=== PATIENT | female | born 1945 | race Caucasian/White ===

== ENCOUNTER 2016-11-08 08:25 | Emergency (ER) | payer OTHER ==
[~2016-11-08] VITALS: Ht 160 cm; Wt 59.0 kg
[2016-11-08 08:31] VITALS: BP 144/79
== END 2016-11-08 10:10 | disposition home or self-care (01) ==
LOC: ER 08:30
DX: J32.9 Chronic sinusitis, unspecified (principal); E03.9 Hypothyroidism, unspecified; K21.9 Gastro-esophageal reflux disease without esophagitis; D09.9 Carcinoma in situ, unspecified
CPT/HCPCS: 71020-TC; A4606; Z7610

== ENCOUNTER 2021-06-30 17:48 | Inpatient (IN) | payer MEDICARE, OTHER ==
[~2021-06-30] VITALS: Ht 160 cm; Wt 41.3 kg
--- NOTE | 2021-06-30 17:53 | NUR ---
SON: CHRISTAL HOUSTON [phone]
--- NOTE | 2021-06-30 17:56 | NUR ---
BIB [facility] 87 FROM HOME, PROGRESSIVE WEAKNESS X 1 WEEK, LOW O2SAT UPON EMS ARRIVAL. PT A&OX3. ATTACHED TO MONITOR. WARM BLANKET PROVIDED FOR COMFORT. AWAITING MD THOMPSON.
[2021-06-30] MEDS ORDERED: AMLO-212 PO (18:00)
[2021-06-30] MEDS ORDERED: LEVO112T7 PO (18:00)
[2021-06-30] MEDS ORDERED: OXYC13.5 PO (18:00)
[2021-06-30] MEDS ORDERED: OMEP20CA15 PO (18:00)
[2021-06-30] MEDS ORDERED: HYDR4TAB57 PO (18:00)
--- NOTE | 2021-06-30 18:50 | NUR ---
COVID SWAB DONE AND SENT TO LAB
[2021-06-30 18:53] LABS: ABG BASE EXCESS 5.5 mmol/L; ABG PH 7.516 (7.350-7.450); ABG PO2 111.4 mmHg (75.0-100.0); COHb 0.2 % (0.5-1.5); MetHb 0.2 % (0.0-1.5); O2Hb 97.8 % (94.0-97.0); SITE, ABG Right Brachial
--- NOTE | 2021-06-30 18:56 | NUR ---
MOVE SHEET SUBMITTED AND CALLED FOR ICU BED.
[2021-06-30] MEDS ORDERED: ALBUTEROL FS 2.5 MG/3 ML VIAL.NEB NEB ONE (19:00)
[2021-06-30] MEDS ORDERED: IPRATROPIUM NEB FS 0.5 MG/2.5 ML AMPUL.NEB NEB ONE (19:00)
--- NOTE | 2021-06-30 19:13 | NUR ---
IV ESTBLAISHED R AC 20G AND CONVERTED TO SALINE LOCK.
[2021-06-30 19:17] LABS: CALCIUM, SERUM 11.1 mg/dL (8.5-10.1); CARBON DIOXIDE 31 mmol/L (21-32); CHLORIDE 95 mmol/L (98-107); CREATININE 1.1 mg/dL (0.6-1.3); GLUCOSE 132 mg/dL (74-106); POTASSIUM 3.7 mmol/L (3.5-5.1); SODIUM SERUM 136 mmol/L (136-145); UREA NITROGEN, BLOOD 33 mg/dL (7-18)
[2021-06-30] MEDS ORDERED: IPRATROPIUM NEB FS 0.5 MG/2.5 ML AMPUL.NEB ONE (19:25)
[2021-06-30] MEDS ORDERED: ALBUTEROL FS 2.5 MG/3 ML VIAL.NEB ONE (19:25)
[2021-06-30 19:32] LABS: ALANINE AMINOTRANSFERASE 38 U/L (12-78); ALBUMIN 2.6 g/dL (3.4-5.0); ALKALINE PHOSPHATASE 127 U/L (46-116); ASPARTATE AMINOTRANSFERASE 181 U/L (15-37); BILIRUBIN,TOTAL 2.1 mg/dL (0.2-1.0); TOTAL PROTEIN, SERUM 7.2 g/dL (6.4-8.2)
[2021-06-30] MEDS ORDERED: IV NS 0.9% 250 ML IV ONE (19:36)
[2021-06-30] MEDS ORDERED: IOHEXOL-350 100 ML VIAL IV ONE (19:36)
--- NOTE | 2021-06-30 19:37 | NUR ---
RT AT PT'S BEDSIDE
--- NOTE | 2021-06-30 20:08 | NUR ---
PT TAKEN TO CT VIA HANG
[2021-06-30 20:18] LABS: EOSINOPHILS % (AUTO) 1.4 % (0.0-6.0); HEMATOCRIT 36 % (33-45); HEMOGLOBIN 12.7 g/dL (11.5-14.8); LYMPHOCYTES # (AUTO) 0.5 K/uL (0.8-4.8); LYMPHOCYTES % (AUTO) 19.3 % (20.0-44.0); MEAN CORPUSCULAR HGB CONC 36 g/dl (31.0-36.0); MEAN CORPUSCULAR VOLUME 102 fL (82-100); MONOCYTES # (AUTO) 0.1 K/uL (0.1-1.30); MONOCYTES % (AUTO) 3.1 % (2.0-12.0); NEUTROPHILS % (AUTO) 76.2 % (43.0-81.0); PLATELET COUNT (AUTO) 348 K/uL (150-450); RED BLOOD CELL COUNT(AUTO) 3.49 MIL/uL (4.0-5.2); WHITE BLOOD COUNT (AUTO) 2.6 K/uL (4.3-11.0)
--- NOTE | 2021-06-30 20:58 | NUR ---
CALLED [facility] PAGED DR SOLER FOR ADMISSION
[2021-06-30 21:13] LABS: BAND % (MANUAL) 46 % (0.0-5.0); LYMPHOCYTES % (MANUAL) 9 % (16-48); MONOCYTES % (MANUAL) 3 % (0-11.0); NEUTROPHILS % (MANUAL) 42 (42-76)
--- NOTE | 2021-06-30 21:30 | NUR ---
TITRATED PT FROM NRB 15L TO N/C 4LPM. SATTING NOW AT 99%; TOLERATING WELL
--- NOTE | 2021-06-30 21:39 | NUR ---
DR. GARCIA SPEAKING TO DR. SOLER VIA PHONE CALL.
--- NOTE | 2021-06-30 22:49 | NUR ---
REPORT GIVEN TO CLEMENTINA HERZOG RN FOR VANESSA
[2021-06-30] MEDS ORDERED: AZITHROMYCIN 250 MG TABLET PO ONE (23:00)
[2021-06-30] MEDS ORDERED: IV NS 0.9% 1,000 ML IV ONE (23:00)
[2021-06-30] MEDS ORDERED: Z GUARD REMEDY 4 OZ OINT TP PRN (23:00)
[2021-06-30] MEDS ORDERED: MAG HYDROX/AL HYDROX/SIMETH 30 ML UDC PO PRN (23:00)
[2021-06-30] MEDS ORDERED: ZOLPIDEM TARTRATE 5 MG TABLET PO PRN (23:00)
[2021-06-30] MEDS ORDERED: MAGNESIUM HYDROXIDE 30 ML UDC PO PRN (23:00)
[2021-06-30] MEDS ORDERED: ACETAMINOPHEN 325 MG TABLET PO PRN (23:00)
[2021-06-30] MEDS ORDERED: ONDANSETRON HCL/PF 4 MG/2 ML VIAL IVP PRN (23:00)
--- NOTE | 2021-06-30 23:07 | NUR ---
Latesha pablo in [facility] - 06/30/21 at 2346 by CARRIE PT TAKEN TO CT VIA HANG
[2021-06-30] MEDS ORDERED: CEFTRIAXONE 1 G VIAL ONE (23:35)
[2021-06-30 23:36] VITALS: BP 113/68
[2021-06-30] MEDS: CEFTRIAXONE 1 G in IV D5W 50 ML IV SCH (23:37)
--- NOTE | 2021-06-30 23:43 | NUR ---
PT TAKEN TO [facility] 114 VIA ACLS PROTOCOL. VSS. ALL BELONGINGS WITH PT.
[2021-06-30] MEDS ORDERED: HYDROMORPHONE HCL 2 MG TABLET PO PRN (23:45)
[2021-07-01 04:00] VITALS: BP 100/56
[2021-07-01 06:43] LABS: BASOPHILS % (AUTO) 0.3 % (0.0-2.0); EOSINOPHILS % (AUTO) 0.1 % (0.0-6.0); HEMATOCRIT 36 % (33-45); HEMOGLOBIN 11.7 g/dL (11.5-14.8); LYMPHOCYTES # (AUTO) 0.2 K/uL (0.8-4.8); LYMPHOCYTES % (AUTO) 6.1 % (20.0-44.0); MEAN CORPUSCULAR HGB CONC 33 g/dl (31.0-36.0); MEAN CORPUSCULAR VOLUME 86 fL (82-100); MONOCYTES # (AUTO) 0.1 K/uL (0.1-1.30); MONOCYTES % (AUTO) 4.5 % (2.0-12.0); NEUTROPHILS # (AUTO) 2.5 K/uL (1.8-8.9); PLATELET COUNT (AUTO) 280 K/uL (150-450); RED BLOOD CELL COUNT(AUTO) 4.13 MIL/uL (4.0-5.2); WHITE BLOOD COUNT (AUTO) 2.8 K/uL (4.3-11.0)
[2021-07-01 07:01] LABS: CALCIUM, SERUM 10.8 mg/dL (8.5-10.1); CREATININE 0.9 mg/dL (0.6-1.3); MAGNESIUM 2.3 mg/dL (1.8-2.4); PHOSPHORUS 3.5 mg/dL (2.5-4.9)
--- NOTE | 2021-07-01 07:31 | NUR ---
RN CLOSING NOTE PATIENT WAS ADMISSION THIS SHIFT. TRANSFERS TO BED WITH NO INJURY. A/OX3. ON 4L VIA NASAL CANULA RESPIRATIONS ARE EVEN AND UNLABORED. NO REPORTS SOB. NO COMPLAINTS OF PAIN. SINUS RHYTHM ON THE MONITOR. BELONGING LIST COMPLETE. WOUND PHOTOS TAKEN AND PLACED IN CHART. RIGHT HAND IV ACCESS IS TENDER, RAC IS PATENT AND SALINE LOCKED. PENDING US ABD, ECHO, DIETARY CONS, WOUND CONS, AND RESPIRATORY CULTURE COLLECTION,. SAFETY. MEASURES IN PLACE.
[2021-07-01 07:45] LABS: POTASSIUM 2.8 mmol/L (3.5-5.1)
--- NOTE | 2021-07-01 07:47 | NUR ---
RN NOTE PT RECEIVED A/OX3 AND AWAKE. ON 4L SAT > 95%. PT NOT EATING. DIETARY CONSULT PLACED. ABLE TO TOLERATE CRUSHED MEDS. RAC AND R HAND #20 IV INTACT AND PATENT. RAC RUNNING NS 75CC. PT ALERT AND COOPERATIVE. WILL CONTINUE TO MONITOR
[2021-07-01 08:00] VITALS: BP 100/60
[2021-07-01] MEDS: LEVOTHYROXINE SODIUM 112 MCG TABLET PO SCH (08:57)
[2021-07-01] MEDS: PANTOPRAZOLE 40 MG TABLET.DR PO SCH (08:57)
[2021-07-01] MEDS: AMLODIPINE BESYLATE 5 MG TABLET PO SCH (08:58)
--- NOTE | 2021-07-01 09:35 | NUR ---
WOUND CARE CONSULT: PT PRESENTS WITH CACHEXIA, SACRAL DEEP TISSUE INJURY IN EVOLUTION AND REDNESS TO BACK AND HEELS, PRESENT ON ADMISSION. DR WORRELL NOTIFIED OF SURGICAL CONSULT. RECOMMENDATIONS MADE FOR SKIN PROTECTION AND WOUND CARE. DISCUSSED WITH NURSING STAFF. PT WAS PLACED ON ISOFLEX LOW AIRLOSS BED. MD IN AGREEMENT WITH PLAN OF CARE.
--- NOTE | 2021-07-01 10:06 | NUR ---
RN NOTE PER NEURO UROLOGIST JANELLE PT IS NOT EATING DUE TO MOUTH SORE. SPOKE TO DR. ARANA ABOUT PT NUTRITIONAL STATUS. ORDERED D/C NS AND BEGIN D5NS 75CC
[2021-07-01] MEDS: IV D5/ 0.9% NACL 1,000 ML IV PRN (10:32)
[2021-07-01] MEDS: POTASSIUM CL. PREMIX PERIPHER. 50 ML IV SCH ×6 (10:34→16:08)
[2021-07-01] MEDS ORDERED: POTASSIUM CHLORIDE 20 MEQ TAB.PRT.SR PO SCH (11:00)
[2021-07-01 12:00] VITALS: BP 97/57
[2021-07-01] MEDS: ENSURE ENLIVE 237 ML LIQUID (VANILLA) PO SCH ×2 (12:00→17:00)
[2021-07-01] MEDS: ENOXAPARIN SODIUM 40 MG/0.4 ML DISP.SYRIN SQ SCH (12:53)
[2021-07-01] MEDS: LIDOCAINE VISCOUS 2% UD 15 ML UDC MM SCH ×3 (14:00→21:34)
[2021-07-01 16:00] VITALS: BP 100/60
--- NOTE | 2021-07-01 16:30 | NUR ---
RN NOTE SPOKE TO DR. ELVIN Lewis ABOUT PT MOUTH SORES. ORDERED LIDOCAINE FOR MOUTH SWISH. PT TRIED TO DRINK WATER AND SPIT OUT. AND WAS UNABLE TO. WILL NOT ADMIN LIDOCAINE.
[2021-07-01] MEDS ORDERED: OXYCODONE MYRISTATE PO SCH (18:00)
--- NOTE | 2021-07-01 19:00 | NUR ---
RN NOTE RECEIVED PATIENT IN BED, AO X 3, SPEECH APPEARS UNCLEAR, IN NO ACUTE DISTRESS AT THIS TIME. RESPIRATIONS UNLABORED, SATURATION AT 94% ON 4L VIA NC, SR ON THE MONITOR, HR IS 81. NOTED IV SITE AT R AC 20G AND R HAND 20G, PATENT AND FLUSHING WELL, NO S/S OF INFECTION OR INFILTRATION WITH D5 NS INFUSING AT 75 ML/HR. SAFETY MEASURES IMPLEMENTED. PATIENT BED ALARM IS ON. HEAD OF BED ELEVATED. BED IS LOCKED, IN LOWEST POSITION AND SIDE RAILS UP. CALL LIGHT WITHIN REACH OF THE PATIENT. WILL CONTINUE TO MONITOR AND REASSESS FOR ANY CHANGES.
[2021-07-01 20:00] VITALS: BP 92/67
[2021-07-01] MEDS: AZITHROMYCIN 250 MG TABLET PO SCH (21:32)
[2021-07-01] MEDS: CEFTRIAXONE 1 G in IV D5W 50 ML IV SCH (21:33)
[2021-07-02] VITALS: BP 105/80
[2021-07-02] MEDS: IV D5/ 0.9% NACL 1,000 ML IV PRN ×2 (00:44→17:49)
--- NOTE | 2021-07-02 01:35 | NUR ---
RN NOTE PT VERY CONFUSED AND STARTED TRYING TO PULL OUT IV LINE, AND REMOVE NON REBREATHER MASK WHILE ON NON REBREATHER AT 15 LPM. PT DESATS EASILY TO 70'S TO LOW 80'S. DR SOLER WAS NOTIFIED, ORDERS RECEIVED TO REASSESS PATIENT AND IF STILL APPEARS CONFUSED, OK TO START B SOFT WRIST RESTRAINTS. DATA CONTROL ASSISTANT CARMEN AWARE
[2021-07-02 04:00] VITALS: BP 93/65
[2021-07-02] MEDS: LIDOCAINE VISCOUS 2% UD 15 ML UDC MM SCH ×3 (06:00→22:00)
[2021-07-02] MEDS: LEVOTHYROXINE SODIUM 112 MCG TABLET PO SCH (06:33)
[2021-07-02] MEDS: PANTOPRAZOLE 40 MG TABLET.DR PO SCH (06:33)
[2021-07-02 07:06] LABS: BASOPHILS % (AUTO) 0.1 % (0.0-2.0); HEMATOCRIT 34 % (33-45); HEMOGLOBIN 11.2 g/dL (11.5-14.8); LYMPHOCYTES # (AUTO) 0.2 K/uL (0.8-4.8); LYMPHOCYTES % (AUTO) 4.6 % (20.0-44.0); MEAN CORPUSCULAR HGB CONC 33 g/dl (31.0-36.0); MEAN CORPUSCULAR VOLUME 88 fL (82-100); MONOCYTES # (AUTO) 0.1 K/uL (0.1-1.30); MONOCYTES % (AUTO) 2.5 % (2.0-12.0); NEUTROPHILS # (AUTO) 3.8 K/uL (1.8-8.9); NEUTROPHILS % (AUTO) 92.8 % (43.0-81.0); PLATELET COUNT (AUTO) 255 K/uL (150-450); RED BLOOD CELL COUNT(AUTO) 3.79 MIL/uL (4.0-5.2); WHITE BLOOD COUNT (AUTO) 4.1 K/uL (4.3-11.0)
[2021-07-02 07:17] LABS: BILIRUBIN,TOTAL 1.1 mg/dL (0.2-1.0); CALCIUM, SERUM 9.9 mg/dL (8.5-10.1); CREATININE 0.9 mg/dL (0.6-1.3); MAGNESIUM 2.1 mg/dL (1.8-2.4); PHOSPHORUS 2.5 mg/dL (2.5-4.9)
--- NOTE | 2021-07-02 07:45 | NUR ---
BATCH AND FURNACE MANAGER OPENING NOTE RECEIVED PATIENT IN BED, AO X 3, SPEECH APPEARS UNCLEAR, IN NO ACUTE DISTRESS AT THIS TIME. RESPIRATIONS UNLABORED, SATURATION AT 87-90% ON NRB MASK 15L, SR ON THE MONITOR, HR IS 81. NOTED IV SITE AT R AC 20G AND R HAND 20G, PATENT AND FLUSHING WELL, NO S/S OF INFECTION OR INFILTRATION WITH D5 NS INFUSING AT 75 ML/HR. SAFETY MEASURES IMPLEMENTED. PATIENT BED ALARM IS ON. HEAD OF BED ELEVATED. BED IS LOCKED, IN LOWEST POSITION AND TWO SIDE RAILS UP. CALL LIGHT WITHIN REACH OF THE PATIENT. WILL CONTINUE TO MONITOR.
[2021-07-02 08:00] VITALS: BP 105/65
[2021-07-02] MEDS: ENSURE ENLIVE 237 ML LIQUID (VANILLA) PO SCH ×3 (08:00→16:20)
[2021-07-02] MEDS: AMLODIPINE BESYLATE 5 MG TABLET PO SCH (09:00)
[2021-07-02] MEDS: ENOXAPARIN SODIUM 40 MG/0.4 ML DISP.SYRIN SQ SCH (09:34)
[2021-07-02] MEDS: POTASSIUM CHLORIDE 20 MEQ TAB.PRT.SR PO SCH ×2 (10:00→10:05)
[2021-07-02] MEDS: POTASSIUM CL. PREMIX PERIPHER. 50 ML IV SCH ×6 (10:40→16:20)
[2021-07-02 12:00] VITALS: BP 97/61
--- NOTE | 2021-07-02 14:59 | NUR ---
Pt.'s son Joon [phone]
[2021-07-02 16:00] VITALS: BP 88/54
[2021-07-02] MEDS ORDERED: HYDROMORPHONE INJ 2 MG/ML DISP.SYRIN IV PRN (17:00)
--- NOTE | 2021-07-02 17:10 | NUR ---
RN NOTES PER SON CHRISTAL, PATIENT RESTRAINTS ARE TO BE KEPT OFF THE PATIENT. PATIENT DECISION MAKER WAS EDUCATED ABOUT POSSIBLE RISKS OF DE-SATING DUE TO REMOVAL OF NRB MASK AND IS WELL AWARE.
[2021-07-02] MEDS: HYDROMORPHONE 1 MG/1 ML DISP.SYRIN IV PRN (17:40)
--- NOTE | 2021-07-02 19:06 | NUR ---
RN CLOSING NOTES PATIENT REMAINED STABLE THROUGHOUT SHIFT. STILL IN NRB MASK 15L AND SATING BETWEEN 91-94. ALL MEDS ADMINISTERED ORDERED. WILL ENDORSE TO INSTRUCTIONAL AIDE FOR VANESSA.
--- NOTE | 2021-07-02 19:10 | NUR ---
RN OPENING NOTES RECEIVED PATIENT ON BED, SLEEPING, A/O X 2. ON NON REBREATHER MASK @ 15 LPM SATING AT 92-93%. RESPIRATORY EVEN AND UNLABORED, NO SOB NOTED. REMAIN AFEBRILE. NO S/S OF DISTRESS NOTED. NOTED WITH RAC @ 20G AND RIGHT HAND #20G PERIPHERAL LINE INTACT PATENT, FLUSHED WITH NS. NO INFILTRATION NOTED AT SITE. RUNNING WITH D5 NS 1L @ 75ML/HR. SAFETY MEASURE PROVIDED. BED IN LOWEST POSITION, LOCKED. BED ALARM ARMED. CONTINUE TO MONITOR.
[2021-07-02 20:00] VITALS: BP 101/65
[2021-07-02] MEDS: AZITHROMYCIN 250 MG TABLET PO SCH (21:10)
[2021-07-02] MEDS: CEFTRIAXONE 1 G in IV D5W 50 ML IV SCH (21:10)
[2021-07-03] VITALS: BP 101/65
[2021-07-03] MEDS: HYDROMORPHONE 1 MG/1 ML DISP.SYRIN IV PRN ×2 (00:29→09:15)
[2021-07-03 04:00] VITALS: BP 103/61
[2021-07-03] MEDS: LIDOCAINE VISCOUS 2% UD 15 ML UDC MM SCH ×2 (06:00→14:00)
[2021-07-03] MEDS: LEVOTHYROXINE SODIUM 112 MCG TABLET PO SCH (06:20)
[2021-07-03] MEDS: IV D5/ 0.9% NACL 1,000 ML IV PRN (06:35)
[2021-07-03 06:56] LABS: BASOPHILS % (AUTO) 0.1 % (0.0-2.0); EOSINOPHILS % (AUTO) 0.1 % (0.0-6.0); HEMATOCRIT 36 % (33-45); HEMOGLOBIN 11.6 g/dL (11.5-14.8); LYMPHOCYTES # (AUTO) 0.3 K/uL (0.8-4.8); LYMPHOCYTES % (AUTO) 3.8 % (20.0-44.0); MEAN CORPUSCULAR HGB CONC 32 g/dl (31.0-36.0); MEAN CORPUSCULAR VOLUME 87 fL (82-100); MONOCYTES # (AUTO) 0.2 K/uL (0.1-1.30); MONOCYTES % (AUTO) 2.4 % (2.0-12.0); NEUTROPHILS # (AUTO) 7.1 K/uL (1.8-8.9); NEUTROPHILS % (AUTO) 93.6 % (43.0-81.0); PLATELET COUNT (AUTO) 252 K/uL (150-450); RED BLOOD CELL COUNT(AUTO) 4.14 MIL/uL (4.0-5.2); WHITE BLOOD COUNT (AUTO) 7.6 K/uL (4.3-11.0)
--- NOTE | 2021-07-03 07:13 | NUR ---
RN NOTES NO SIGNIFICANT CHANGES THROUGH OUT THE SHIFT. RESPIRATORY EVEN AND UNLABORED, NO SOB NOTED. REMAIN AFEBRILE. NO S/S OF DISTRESS NOTED. RUNNING WITH D5 NS 1L @ 75ML/HR. ALL DUE MEDS GIVEN ORDERED. SAFETY MEASURE PROVIDED. BED IN LOWEST POSITION, LOCKED. BED ALARM ARMED. ENDORSED TO NEXT SHIFT.
[2021-07-03 07:24] LABS: ALBUMIN 1.9 g/dL (3.4-5.0); CREATININE 0.9 mg/dL (0.6-1.3); MAGNESIUM 1.8 mg/dL (1.8-2.4); PHOSPHORUS 2.6 mg/dL (2.5-4.9); TOTAL PROTEIN, SERUM 6.2 g/dL (6.4-8.2)
--- NOTE | 2021-07-03 07:27 | NUR ---
RN OPENING NOTE PATIENT RECEIVED IN BED, SLEEPING. PATIENT ON 15L O2 NRB WITH SOME LABORED BREATHING, SATURATING 97% ON BEDSIDE MONITOR. RIGHT AC AND RIGHT HAND 20G IV IN PLACE RUNNING D5NS AT 75 CC/HR. NO SIGNS OF ACUTE DISTRESS NOTED AT THIS TIME. BED LOCKED AND IN LOWEST POSITION, CALL LIGHT WITHIN REACH, 2 SIDE RAILS UP. WILL CONTINUE TO MONITOR.
[2021-07-03 08:00] VITALS: BP 95/53
[2021-07-03] MEDS: ENSURE ENLIVE 237 ML LIQUID (VANILLA) PO SCH ×2 (08:09→11:48)
[2021-07-03] MEDS: ENOXAPARIN SODIUM 40 MG/0.4 ML DISP.SYRIN SQ SCH (08:13)
[2021-07-03] MEDS: PANTOPRAZOLE 40 MG TABLET.DR PO SCH (08:13)
[2021-07-03] MEDS: AMLODIPINE BESYLATE 5 MG TABLET PO SCH (08:13)
--- NOTE | 2021-07-03 09:23 | NUR ---
RN NOTE PATIENT REPORTING SEVERE PAIN. HR 160S-170S. BP 110/68, PATIENT SATURATING 94% ON NRB 15L O2. DILAUDID GIVEN, OKAY PER CHARGE NURSE SOON. WILL CONTINUE TO MONITOR.
[2021-07-03 09:50] VITALS: BP 83/54
[2021-07-03 10:13] LABS: ABG OXYGEN SATURATION 84.9 % (92.0-98.5); ABG PCO2 47.2 mmHg (35.0-45.0); ABG PH 7.342 (7.350-7.450); ABG PO2 55.3 mmHg (75.0-100.0); AaDO2 465.5 mmHg; COHb 0.3 % (0.5-1.5); MetHb 0.2 % (0.0-1.5); O2Hb 84.5 % (94.0-97.0); SITE, ABG Left Brachial; VENT MODE, BG 80% NRB
[2021-07-03] MEDS ORDERED: DIGOXIN INJ 0.5 MG/2 ML AMPUL IV SCH (10:30)
--- NOTE | 2021-07-03 10:56 | NUR ---
RN NOTE RAPID RESPONSE CALLED AT 0950. HR 180S, DESATING DOWN TO 70S-80S ON BEDSIDE MONITOR. PATIENT PALE WITH COOL SKIN. NO SIGNS OF BLEEDING. RT, RN AND ICU AT BEDSIDE. ABG DONE, BLOOD SUGAR STABLE. DIGOXIN ORDERED PER DR. MICHAEL, GIVEN, TO CONTINUE MONITORING IN [facility] AT THIS TIME. HIGH FLOW NC SET UP BY RT AT THIS TIME.
--- NOTE | 2021-07-03 11:48 | NUR ---
RN NOTE PATIENT UNABLE TO SAFELY SWALLOW AT THIS TIME. CURRENTLY ON HFNC AND NRB TO MAINTAIN O2 SAT GREATER THAN 90%. WILL CONTINUE TO MONITOR.
[2021-07-03 12:00] VITALS: BP 134/78
[2021-07-03 16:00] VITALS: BP 120/50
[2021-07-03] MEDS ORDERED: MORPHINE SULFATE PF DRIP 250 MG in IV D5W 240 ML IV PRN (16:30)
[2021-07-03] MEDS ORDERED: KEY,NONCONTROL,TO KEEP IN PYXI 1 EA MC ONE (17:10)
--- NOTE | 2021-07-03 17:46 | NUR ---
RN NOTE PATIENT PLACED ON COMFORT MEASURES PER FAMILY WISHES. MORPHINE DRIP INITIATED ORDERED. WILL CONTINUE TO MONITOR.
--- NOTE | 2021-07-03 18:38 | NUR ---
RN CLOSING NOTE PATIENT ON COMFORT MEASURES ONLY AT THIS TIME PER SON'S WISHES. PATIENT ON SUPPLEMENTAL OXYGEN FOR COMFORT. MORPHINE DRIP PER PROTOCOL. RIGHT UA MIDLINE, RIGHT AC AND RIGHT FA IV IN PLACE. BED LOCKED AND IN LOWEST POSITION, CALL LIGHT WITHIN REACH, 2 SIDE RAILS UP. WILL ENDORSE TO FIRE HOSE CURER NURSE.
--- NOTE | 2021-07-03 19:45 | NUR ---
RN NOTES PT DC'd FOR MED SURG AND FOR HOSPICE ADMISSION. TANK WASHER MADE AWARE.
--- NOTE | 2021-07-03 19:50 | NUR ---
RT NOTE PT RECEIVED ON HIGH FLOW 60 LPM @ 100% WITH NONREBREATHER MASK. PT REMAINS IN RESPIRATORY DISTRESS ON COMFORT MEASURE CARE.
== END 2021-07-03 19:30 | disposition hospice, inpatient (51) | DRG 871 ==
LOC: ER 17:56 → TELE-TD 22:03 → TELE1 07-01 16:37 → TELE-TD 07-03 10:55 → MEDSG1 07-03 16:22
PROVIDERS: ADMIT Family Medicine
PROC: 05H533Z Insertion of Infusion Device into Right Subclavian Vein, Percutaneous Approach (ICD-10-PCS; principal; 2021-07-03)
PROC: B546ZZA Ultrasonography of Right Subclavian Vein, Guidance (ICD-10-PCS; 2021-07-03)
DX: A41.9 Sepsis, unspecified organism (principal); J96.01 Acute respiratory failure with hypoxia; J18.9 Pneumonia, unspecified organism; N17.0 Acute kidney failure with tubular necrosis; C79.51 Secondary malignant neoplasm of bone; C34.90 Malignant neoplasm of unspecified part of unspecified bronchus or lung; E44.0 Moderate protein-calorie malnutrition; G93.40 Encephalopathy, unspecified; J98.11 Atelectasis; J90 Pleural effusion, not elsewhere classified; C78.7 Secondary malignant neoplasm of liver and intrahepatic bile duct; M84.48XA Pathological fracture, other site, initial encounter for fracture; Z68.1 Body mass index [BMI] 19.9 or less, adult; K21.9 Gastro-esophageal reflux disease without esophagitis; D72.819 Decreased white blood cell count, unspecified; E03.9 Hypothyroidism, unspecified; E83.52 Hypercalcemia; E88.09 Other disorders of plasma-protein metabolism, not elsewhere classified; E86.0 Dehydration; I10 Essential (primary) hypertension; I48.91 Unspecified atrial fibrillation; Z51.5 Encounter for palliative care; R73.9 Hyperglycemia, unspecified; L89.156 Pressure-induced deep tissue damage of sacral region; L89.106 Pressure-induced deep tissue damage of unspecified part of back; Z20.822 Contact with and (suspected) exposure to COVID-19
CPT/HCPCS: 31720; 36410; 36415; 36600; 71045-TC; 76700-TC; 80048-TC; 80053-TC; 80061-TC; 80076-TC; 82962-TC; 83735-TC; 83880; 84100-TC; 84484-TC; 85025-TC; 85378-TC; 87081-TC; 93307-TC; 94799-TC; C9803; G0378; J0696; J1160; J1170; J1650; J2274; J3480; J3490; J7030; J7042; J7050; J7060; Q9967

== ENCOUNTER 2021-07-03 19:54 | Inpatient (IN) | payer OTHER ==
[~2021-07-03] VITALS: Ht 160 cm; Wt 41.3 kg
--- NOTE | 2021-07-03 19:45 | NUR ---
RN NOTES PT ADMITTED TO HOSPICE CARE. WILL CONTINUE TO MONITOR AND ASSESS THROUGHOUT THE SHIFT. BREAKER HAND MADE AWARE.
[~2021-07-03 19:54] MED LIST: AMLO-212 PO; HYDR4TAB57 PO; LEVO112T7 PO; OMEP20CA15 PO; OXYC13.5 PO
[2021-07-03 20:00] VITALS: BP 69/42
[2021-07-03] MEDS ORDERED: ACETAMINOPHEN 650 MG/SUPP.RECT RC PRN (20:30)
[2021-07-03] MEDS: MORPHINE SULFATE PF DRIP 250 MG in IV D5W 240 ML IV PRN (21:00)
[2021-07-04 04:00] VITALS: BP 76/46
--- NOTE | 2021-07-04 06:42 | NUR ---
RN CLOSING NOTES PT ON HOSPICE AND COMFORT CARE AT THIS TIME; ON 15L OF O2 VIA NRB MASK, 02 SAT RANSGES 86-92% ALL THROUGHOUT THE SHIFT. BP IS RUNNING LOW SBP <90. HR is 90s. WITH RUNNING MORPHINE DRIP RECEIVED WITH STARTING DOSE RATE OF 4MG/HR AND CURRENTLY RUNNING AT 6MG/HR; INFUSING WELL PER PROTOCOL. PATIENT KEPT CLEAN AND COMFORTABLE WITHIN THE SHIFT. PATIENT ENDORSED TO INCOMING SHIFT RN FOR CONTINUITY OF CARE.
--- NOTE | 2021-07-04 07:20 | NUR ---
RN OPENING NOTES RECEIVED PT ON HOSPICE AND COMFORT CARE AT THIS TIME; ON 15L OF O2 VIA NRB MASK. IV RUNNING MORPHINE DRIP RECEIVED WITH STARTING DOSE RATE OF 4MG/HR AND CURRENTLY RUNNING AT 6MG/HR; INFUSING WELL PER PROTOCOL. SAFETY MEASURES IN PLACE. BED LOCKED IN THE LOWEST POSITION, 2 SIDE RAILS UP. BED ALARM ACTIVATED.
[2021-07-04 12:00] VITALS: BP 50/29
[2021-07-04] MEDS: MORPHINE SULFATE PF DRIP 250 MG in IV D5W 240 ML IV PRN (18:42)
[2021-07-04] MEDS ORDERED: KEY,NONCONTROL,TO KEEP IN PYXI 1 EA MC ONE (18:44)
--- NOTE | 2021-07-04 19:08 | NUR ---
RN CLOSING NOTES PT ON HOSPICE AND COMFORT CARE AT THIS TIME; ON 15L OF O2 VIA NRB MASK, . WITH RUNNING MORPHINE DRIP RECEIVED WITH STARTING DOSE RATE OF 4MG/HR AND CURRENTLY RUNNING AT 6MG/HR; INFUSING WELL PER PROTOCOL. PATIENT KEPT CLEAN AND COMFORTABLE WITHIN THE SHIFT. PATIENT ENDORSED TO INCOMING SHIFT RN FOR CONTINUITY OF CARE.
--- NOTE | 2021-07-04 19:30 | NUR ---
RN NOTE PT RECEIVED IN BED. PT IS ON HOSPICE CARE AND COMFORT MEASURES AT THIS TIME. FAMILY AT BEDSIDE. CURRENTLY ON NRB AT 15L WITH OXYGEN SATURATION AT 92%. BREATHING IS SHALLOW. PT IS NOT ALERT OR ORIENTED. NPO. IV ACCESS NOTED ON RIGHT AC #20 AND RIGHT HAND #20. MORPHINE DRIP CURRENTLY RUNNING AT 6 MG/HR. ALL SAFETY MEASURES IMPLEMENTED. WILL CONTINUE TO MONITOR AND ASSESS FOR ANY CHANGES.
[2021-07-04 20:00] VITALS: BP 57/35
--- NOTE | 2021-07-05 06:54 | NUR ---
RN NOTE NO CHANGES IN PT CONDITION DURING SHIFT. CURRENTLY ON NRB AT 15L WITH OXYGEN SATURATION FLUCTUATING BETWEEN 87-92%. IV ACCESS NOTED ON RIGHT AC #20 AND RIGHT HAND #20. MORPHINE DRIP CURRENTLY RUNNING AT 6 MG/HR. ALL SAFETY MEASURES IMPLEMENTED. WILL ENDORSE TO MORNING SHIFT RN FOR VANESSA.
--- NOTE | 2021-07-05 08:36 | NUR ---
RN OPENING NOTE RECEIVED PT IN BED ASLEEP, CURRENTLY ON NRB AT 15L WITH OXYGEN SATURATION FLUCTUATING BETWEEN 87-92%. IV ACCESS NOTED ON RIGHT AC #20 AND RIGHT HAND #20. MORPHINE DRIP CURRENTLY RUNNING AT 6 MG/HR. ALL SAFETY MEASURES IMPLEMENTED. WILL CONTINUE TO MONITOR THROUGHOUT SHIFT.
[2021-07-05 12:00] VITALS: BP 45/24
--- NOTE | 2021-07-05 18:56 | NUR ---
RN CLOSING NOTES PT ON HOSPICE AND COMFORT CARE AT THIS TIME; ON 15L OF O2 VIA NRB MASK, . WITH RUNNING MORPHINE DRIP CURRENTLY RUNNING AT 6MG/HR; INFUSING WELL PER PROTOCOL. PATIENT KEPT CLEAN AND COMFORTABLE WITHIN THE SHIFT. WILL ENDORSE TO PLATE COLORER NURSE FOR VANESSA.
[2021-07-05] MEDS ORDERED: KEY,NONCONTROL,TO KEEP IN PYXI 1 EA MC ONE ×2 (19:00→19:15)
[2021-07-05] MEDS: MORPHINE SULFATE PF DRIP 250 MG in IV D5W 240 ML IV PRN (19:23)
--- NOTE | 2021-07-05 20:10 | NUR ---
RN NOTES, AT 2020 NOTED PATIENT WITH WITH NO SPONTANEOUS MOVEMENTS, NO PUPILLARY CORNEAL REFLEX PRESENT, PUPILS FIXED AND DILATED, NO SPONTANEOUS CARDIAC OR RESPIRATORY ACTIVITY NOTED, NO LUNG SOUNDS UPON AUSCULTATIONS, NO BREATH SOUNDS WERE APPRECIATED, NO CAROTIC PULSES PALPABLE, PATIENT PRONOUNCED AT THIS TIME, PATIENT WAS DNR/DNI UNDER DEDICATED HOSPICE CARE.
--- NOTE | 2021-07-05 20:15 | NUR ---
CALLED [facility] AT [phone] TO INFORM THAT PATIENT , SON WILL BE HERE WITHIN AN HOUR.
--- NOTE | 2021-07-05 20:21 | NUR ---
ATTENDING PHYSICIAN DR SOLER INFORMED ABOUT PATIENT .
--- NOTE | 2021-07-05 20:56 | NUR ---
RN NOTE SPOKE WITH [facility] REGARDING PT EXPIRING. CASE #[id number]. ENVIRONMENTAL HEALTH SAFETY MANAGERCARLEE WATT.
--- NOTE | 2021-07-05 21:00 | NUR ---
RN NOTE PT'S BELONGINGS RELEASED TO SON CHRISTAL AT THIS TIME.
--- NOTE | 2021-07-05 22:31 | NUR ---
RN NOTES, [facility]
== END 2021-07-05 22:31 | DRG 862 ==
LOC: HOSPICE1 19:54
DX: Z51.5 Encounter for palliative care (principal); J96.01 Acute respiratory failure with hypoxia; N17.0 Acute kidney failure with tubular necrosis; A41.9 Sepsis, unspecified organism; G93.40 Encephalopathy, unspecified; E44.0 Moderate protein-calorie malnutrition; C79.51 Secondary malignant neoplasm of bone; J18.9 Pneumonia, unspecified organism; E88.09 Other disorders of plasma-protein metabolism, not elsewhere classified; C34.90 Malignant neoplasm of unspecified part of unspecified bronchus or lung; M84.48XA Pathological fracture, other site, initial encounter for fracture; E86.0 Dehydration; D72.819 Decreased white blood cell count, unspecified; E03.9 Hypothyroidism, unspecified; E83.52 Hypercalcemia; I10 Essential (primary) hypertension; J98.11 Atelectasis; K21.9 Gastro-esophageal reflux disease without esophagitis; Z66 Do not resuscitate; C78.7 Secondary malignant neoplasm of liver and intrahepatic bile duct; R73.9 Hyperglycemia, unspecified; Z68.1 Body mass index [BMI] 19.9 or less, adult
CPT/HCPCS: 94799-TC; G0378; J2274; J7060